=== PATIENT | female | born 1940 | race Caucasian/White ===

== ENCOUNTER → 2016-05-02 | Day surgery (SDC) | payer MEDICARE ==
[~2016-05-02] VITALS: Ht 162.6 cm; Wt 48.5 kg
[~2016-05-02] MED LIST: *ENALAPRILAT 1.25 MG/ML VIAL PERIprocedural Use ONLY ONE; *LABETALOL HCL 100 MG/20 ML VIAL PERIprocedural Use ONLY ONE; BIOT5TAB PO; CEPH-459 PO; CINN500T PO; CRANCAP2 PO; CYCL1TAB29 PO; DEXAMETHASONE SOD PHOS 4 MG/ML VIAL ONE; DO NOT ADM ANY ANTICOAGULANT DRUGS XX PRN; ERGO1CAP30 PO; FAMOTIDINE 20 MG/2 ML VIAL ONE; INSULIN HUMAN REGULAR 1,000 UNITS/10 ML VIAL SQ PRN; IOHEXOL 300 MG/ML 50 ML BTL (for RAD DIAG) ONE; KETOROLAC TROMETHAMINE 60 MG/2 ML (IM) VIAL IM ONE; LACTATED RINGER'S 1000 ML IV SCH; METOPROLOL TARTRATE 25 MG TAB PO PRN; MIDAZOLAM HCL 2 MG/2 ML VIAL ONE; MULTTAB24 PO; NITR1CAP37 PO; ONDANSETRON HCL 4 MG/2 ML VIAL IV PUSH ONE; ONDANSETRON HCL 4 MG/2 ML VIAL IV PUSH PRN; OXYC30TA PO; PERC5TAB12 PO; PERI8.6T PO; PHENYLEPH/NS 1000 MCG/10 ML SYR IV ONE; PRIL20CA9 PO; PROPOFOL 200 MG/20 ML AMP IV ONE; SODIUM CHLORID 0.9% 500 ML IV SCH; SODIUM CHLORIDE 0.9% INJ 100 ML ONE; VESI5TAB PO; ZOFR4TAB PO; ceFAZolin 1,000 MG/NS 100 ML IV SCH; ceFAZolin INJ 1,000 MG VIAL ONE; ePHEDrine/NS 50 MG/5 ML SYR IV ONE; oxyCODONE/ACETAMINOPHEN 5 MG/325 MG TAB PO PRN
[2016-05-02 08:56] VITALS: BP 184/96; PULSE 76; RESP 20; TEMP 98.3; O2SAT 99
[2016-05-02 09:05] LABS: AUTOMATED NEUTROPHIL # 7.2 TH/MM3 (1.8-7.7); BASOPHIL % 0.3 % (0.0-2.0); EOSINOPHIL # 0.1 TH/MM3 (0-0.4); EOSINOPHIL % 0.9 % (0.0-4.0); HEMATOCRIT 39.1 % (35.0-46.0); HEMO FLAGS DIFF FINAL; LYMPH % 11.9 % (9.0-44.0); LYMPHOCYTE # 1.1 TH/MM3 (1.0-4.8); MEAN CELL VOLUME 97.5 FL (80.0-100.0); MEAN CORPUSCULAR HEMOGLOBIN 33.1 PG (27.0-34.0); MONO % 6.4 % (0.0-8.0); NEUT % 80.5 % (16.0-70.0); PLATELET COUNT 187 TH/MM3 (150-450); RED BLOOD COUNT 4.01 MIL/MM3 (4.00-5.30); RED CELL DISTRIBUTION WIDTH 12.6 % (11.6-17.2); WHITE BLOOD COUNT 8.9 TH/MM3 (4.0-11.0)
--- NOTE | 2016-05-02 09:41 | EKG ---
Date Performed: 05/02/2016 Time Performed: 08:44:48 PTAGE: 75 years EKG: Sinus rhythm POSSIBLE LEFT ATRIAL ENLARGEMENT BORDERLINE ECG PREVIOUS TRACING : 05/19/2014 14.55 No significant change from previous tracing noted. DOCTOR: Boris Finney Interpretating Date/Time 05/02/2016 09:41:08
[2016-05-02 15:00] VITALS: BP 167/88; PULSE 72; RESP 16; TEMP 96.9; O2SAT 100
--- NOTE | 2016-05-03 09:13 | MP ---
cc: FABRIZIO REED MD DATE OF SURGERY: 05/02/2016 INDICATION FOR PROCEDURE This is the case of a pleasant 75-year-old female with a history of recurrent urinary tract infections. Recent cystoscopic evaluation demonstrated an obstructing right ureterocele. The patient presents today to undergo cystoscopy, endoscopic unroofing of right ureterocele, right retrograde pyelogram and right ureteral stent placement. PREOPERATIVE DIAGNOSIS Obstructing right ureterocele. POSTOPERATIVE DIAGNOSIS Obstructing right ureterocele. ATTENDING SURGEON Dr. Reed ANESTHESIA General. PROCEDURES PERFORMED Cystoscopy, right retrograde pyelogram, endoscopic unroofing of right ureterocele and right ureteral stent insertion. COMPLICATIONS None. ESTIMATED BLOOD LOSS Minimal. SPECIMENS None. OPERATIVE PROCEDURE IN DETAIL The patient was brought to the operating suite and placed supine on the cystoscopy table. She was then placed under general anesthesia. She was then repositioned in the dorsal lithotomy position and prepped and draped in normal sterile fashion. After an appropriate timeout was undertaken, I proceeded with cystoscopic evaluation utilizing the rigid cystoscope with a 22-Moroccan sheath and the 30-degree lens. Once again the patient was noted to have an obstructing right ureterocele with a pinpoint opening. The left ureteral orifice appeared normal. I then proceeded to pass a Sensor guidewire, 0.035 inch in size, up the right ureter through this pinpoint right ureteral orifice. Once the wire was in place a 6-Moroccan open-ended ureteral catheter was advanced over the wire and advanced up into the right kidney. With the open-ended ureteral catheter in place the guidewire was withdrawn. The cystoscope was removed leaving the open-ended ureteral catheter in place and reintroduced alongside the ureteral catheter. I then utilized the endoscopic scissors and proceeded with unroofing the obstructing right ureterocele. The opening was easily created and subsequent to this the Bugbee electrode was utilized for hemostasis. I then reloaded the guidewire through the open-ended ureteral catheter and back loaded the cystoscope. With the cystoscope within the urinary bladder I then removed the guidewire and proceeded with performing a right retrograde pyelogram study to outline the collecting system. The guidewire was then reintroduced through the open-ended catheter and this catheter was then exchanged for a 6-Moroccan, 24-cm long-term double-J stent. The stent was passed under both cystoscopic and fluoroscopic guidance without difficulty. Once the stent was in proper position the trailing string was removed. The bladder was next drained of all irrigant fluid and the cystoscope withdrawn. A 16-Moroccan, 10 cc Chester catheter was then placed and connected to gravity drainage. The patient tolerated the procedures without complications and was transferred to the PACU in satisfactory condition. MD ANDRES Tucker/BRIAN /1:06 PM /9:07 AM
== END | disposition home or self-care (01) ==
LOC: HSDC 08:06
PROVIDERS: ATTEND Urology
DX: N28.89 Other specified disorders of kidney and ureter (principal); I48.91 Unspecified atrial fibrillation; Z87.440 Personal history of urinary (tract) infections
CPT/HCPCS: 00910; 52301; 52332; 74420; 85025; 93005; J0690; J1100; J1885; J2250; J2370; J2405; Q9967

== ENCOUNTER → 2016-08-22 | Outpatient (CLI) | payer MEDICARE ==
[~2016-08-22] MED LIST changes: -*ENALAPRILAT 1.25 MG/ML VIAL PERIprocedural Use ONLY ONE; -*LABETALOL HCL 100 MG/20 ML VIAL PERIprocedural Use ONLY ONE; -CEPH-459 PO; -DEXAMETHASONE SOD PHOS 4 MG/ML VIAL ONE; -DO NOT ADM ANY ANTICOAGULANT DRUGS XX PRN; -FAMOTIDINE 20 MG/2 ML VIAL ONE; -INSULIN HUMAN REGULAR 1,000 UNITS/10 ML VIAL SQ PRN; -IOHEXOL 300 MG/ML 50 ML BTL (for RAD DIAG) ONE; -KETOROLAC TROMETHAMINE 60 MG/2 ML (IM) VIAL IM ONE; -LACTATED RINGER'S 1000 ML IV SCH; -METOPROLOL TARTRATE 25 MG TAB PO PRN; -MIDAZOLAM HCL 2 MG/2 ML VIAL ONE; -ONDANSETRON HCL 4 MG/2 ML VIAL IV PUSH ONE; -ONDANSETRON HCL 4 MG/2 ML VIAL IV PUSH PRN; -PERC5TAB12 PO; -PHENYLEPH/NS 1000 MCG/10 ML SYR IV ONE; -PROPOFOL 200 MG/20 ML AMP IV ONE; -SODIUM CHLORID 0.9% 500 ML IV SCH; -SODIUM CHLORIDE 0.9% INJ 100 ML ONE; -ceFAZolin 1,000 MG/NS 100 ML IV SCH; -ceFAZolin INJ 1,000 MG VIAL ONE; -ePHEDrine/NS 50 MG/5 ML SYR IV ONE; -oxyCODONE/ACETAMINOPHEN 5 MG/325 MG TAB PO PRN
[2016-08-22 13:32] LABS: ANION GAP 6 MEQ/L (5-15); AST (GOT) 49 U/L (15-37); BICARBONATE 29.6 MEQ/L (21.0-32.0); BLOOD UREA NITROGEN 18 MG/DL (7-18); CHLORIDE 106 MEQ/L (98-107); GLOMERULAR FILTRATION RATE 91 ML/MIN (>89); GLUCOSE,FASTING 75 MG/DL (74-99); SODIUM (NA) 142 MEQ/L (136-145)
[2016-08-22 13:35] LABS: ALKALINE PHOSPHATASE 156 U/L (45-117); ALT (GPT) 40 U/L (10-53); TOTAL BILIRUBIN ADULT 0.6 MG/DL (0.2-1.0)
== END ==
LOC: PLAB 10:55
PROVIDERS: ATTEND Family Medicine
DX: Q05.9 Spina bifida, unspecified (principal); Z68.1 Body mass index [BMI] 19.9 or less, adult; K59.09 Other constipation
CPT/HCPCS: 36415; 80053

== ENCOUNTER → 2016-09-14 | Outpatient (CLI) | payer MEDICARE ==
[~2016-09-14] MED LIST changes: -PERI8.6T PO; -VESI5TAB PO
[2016-09-14 15:39] LABS: BACTERIA, URINE RARE /hpf; BLOOD, URINE NEG (NEG); COMMENT (UR) CULTURE INDICATED; CULTURE IF INDICATED CULTURE INDICATED; GLUCOSE,URINE NEG (NEG); KETONE, URINE NEG (NEG); MUCUS URINE FEW /lpf (OCC); NITRITE,URINE NEG (NEG); URINE COLOR DARK-YELLOW (YELLW/STRAW)
== END ==
LOC: PLAB 13:49
PROVIDERS: ATTEND Family Medicine
DX: R10.9 Unspecified abdominal pain (principal)
CPT/HCPCS: 81001; 87086

== ENCOUNTER → 2017-06-09 | Outpatient (CLI) | payer MEDICARE ==
[~2017-06-09] MED LIST changes: +CINN500C2 PO; -CINN500T PO; +CYCL10TA PO; -CYCL1TAB29 PO; -ERGO1CAP30 PO; +NITR50CA27 PO; +OMEP20CA2; -PRIL20CA9 PO; +VESI5TAB2 PO; +VITA500012 PO
== END ==
LOC: CLAB 11:46
PROVIDERS: ATTEND Urology
DX: N39.0 Urinary tract infection, site not specified (principal); B96.20 Unspecified Escherichia coli [E. coli] as the cause of diseases classified elsewhere
CPT/HCPCS: 87077; 87086; 87186